=== PATIENT | female | born 1985 | race Caucasian/White ===

== ENCOUNTER 2017-12-19 17:51 | Observation (INO) | payer OTHER ==
[~2017-12-19] VITALS: Ht 162.6 cm; Wt 76.0 kg
--- NOTE | 2017-12-19 17:57 | NUR ---
PT TO ROOM FOR EXAM
--- NOTE | 2017-12-19 18:30 | NUR ---
PT REPORTS LEFT FLANK PAIN X 1 DAY. DENIES ANY PAIN UPON URINATION. PT AWARE OF PLAN OF CARE AND WAIT TIME, WILL CONTINUE TO MONITOR.
[2017-12-19 18:37] LABS: HEMATOCRIT 40.4 % (37.0-47.0); HEMOGLOBIN 13.8 g/dl (12.0-16.0); IMMATURE GRANULOCYTES 0.2 % (0.0-1.0); MEAN CORPUSCULAR HGB 32.1 pG CALC (26.0-32.0); MEAN CORPUSCULAR HGB CONC 34.2 g/L CALC (32.0-36.0); NEUT# 3.47 thou/uL (2.00-7.15); RED BLOOD COUNT 4.3 mill/uL (4.20-5.60); RED CELL DISTRI WIDTH 12.6 % (11.5-15.5)
[2017-12-19 18:41] LABS: URINE BILIRUBIN - DIPSTICK NEGATIVE (NEGATIVE); URINE BLOOD DIPSTICK MODERATE (NEGATIVE); URINE COLOR YELLOW; URINE GLUCOSE - DIPSTICK NEGATIVE (NEGATIVE); URINE KETONE NEGATIVE (NEGATIVE); URINE LEUK ESTERASE NEGATIVE (NEGATIVE); URINE NITRITE - DIPSTICK NEGATIVE (Negative); URINE PROTEIN - DIPSTICK NEGATIVE (NEG-TRACE); URINE SPECIFIC GRAVITY 1.025
[2017-12-19 18:43] LABS: URINE CLARITY CLEAR
--- NOTE | 2017-12-19 18:45 | NUR ---
PT REFUSED PHENERGAN AT THIS TIME AND WILL NOTIFY US IF SHE NEEDS IT.
[2017-12-19 18:52] LABS: URINE SQUAMOUS EPITHELIAL CELL FEW EPI/hpf (0-FEW)
--- NOTE | 2017-12-19 18:54 | NUR ---
REPORT GIVEN TO DAVID VILLA.
--- NOTE | 2017-12-19 18:57 | NUR ---
PT RETURNED FROM CT.
[2017-12-19 18:58] LABS: ALBUMIN 4.5 g/dL (3.2-5.0); ALKALINE PHOSPHATASE 42 u/l (38-126); ANION GAP 18 (6-22 (CALC)); BILIRUBIN, TOTAL 0.4 mg/dL (0.0-1.4); BUN 17 mg/dL (7-17); BUN/CREATININE RATIO 23 (12-20 (CALC)); CARBON DIOXIDE 20 mmol/l (22-30); CHLORIDE 109 mmol/l (95-108); CREATININE 0.7 mg/dL (0.5-1.0); GFR > 60 ML/MIN (>=60 (CALC)); GFR FOR AFR.AMER. > 60 ML/MIN (>=60 (CALC)); LIPASE 93 u/l (23-300); POTASSIUM 4.1 mmol/l (3.5-5.1); SGOT/AST 19 u/l (14-36); SGPT/ALT 24 u/l (9-52); SODIUM 142 mmol/l (137-146)
--- NOTE | 2017-12-19 19:02 | NUR ---
PT RATED PAIN 7/10.
--- NOTE | 2017-12-19 19:05 | NUR ---
PT REQUESTED TYLENOL, ERP INFORMED
--- NOTE | 2017-12-19 19:19 | NUR ---
PROVIDED WARM PACK FOR PT COMFORT
--- NOTE | 2017-12-19 19:45 | NUR ---
DR MILES AT BEDSIDE.
--- NOTE | 2017-12-19 19:52 | NUR ---
DR MILES INFORMED PT OF ADM.
--- NOTE | 2017-12-19 20:07 | NUR ---
PT RELATED PAIN DOWN TO 4-5/10. NO DISTRESS NOTED.
--- NOTE | 2017-12-19 20:09 | NUR ---
REPORT CALLED TO [facility].
--- NOTE | 2017-12-19 20:12 | NUR ---
PT ARRIVED TO UNIT VIA WHEELCHAIR WITH ER STAFF. AMBULATED TO BED; ALERT AND OREINTED. CURRENTLY C/O LEFT FLANK PAIN 01/04. RESPIRATIONS EVEN AND UNLABORED. OREINTED TO ROOM AND CALL LIGHT SYSTEM. PLAN OF CARE DISCUSSED. PT ENCOURAGED TO VERBALIZE CONCERNS. STATES UNDERSTANDING. SAFETY MEASURES IN PLACE. CALL LIGHT WITHIN REACH.
--- NOTE | 2017-12-19 20:15 | NUR ---
PT TO 283 WITH RN VIA W/C.
[2017-12-19 20:22] VITALS: BP 136/83
--- NOTE | 2017-12-19 23:18 | NUR ---
ROCEPHIN INFUSING AT THIS TIME. PT STATES, "I HAVE THE URGE TO PEE, BUT AM ONLY PEEING SMALL AMOUNTS AT A TIME." STRAINING URINE; APPEARS CLEAR YELLOW. PT STATES THAT WAS SEEN AT DR. MORROW OFFICE THIS AM FOR A ROUTINE CHECK UP BECAUSE SHE HASNT BEEN FEELING WELL. THEY DID LAB WORK AT THE OFFICE AND PT STATES THAT SHE DOES NOT WANT THE LAB WORK REPEATED IN THE MORNING. FAMILY UP TO VISIT MOMENTARILY. PT ABLE TO MAKE NEEDS KNOWN. CALL LIGHT WITHIN REACH.
[2017-12-20] VITALS (7 sets, daily range): BP systolic 102–158; BP diastolic 56–89
--- NOTE | 2017-12-20 00:36 | NUR ---
PT RESTING IN BED WITH EYES CLOSED. LORTAB GIVEN FOR MODERATE PAIN TO LEFT FLANK. RESPIRATIONS EVEN AND UNLABORED. IV FLUIDS INFUSING WITHOUT DIFFICUTLY; IV SITE APPEARS HEALTHY. PT IS INDEPDENT IN ROOM; USES CALL LIGHT PRN FOR ASSISTANCE. HAS SOME QUESTIONS ABOUT TOMORROW'S PROCEDURE; INFORMED THAT THE DOCTOR WILL BE IN TO DISCUSS TREATMENT PLAN BEFORE ANY INTERVENTIONS. PT SATISFIED WITH ANSWERS. SAFETY MEASURES IN PLACE. CALL LIGHT WITHIN REACH.
--- NOTE | 2017-12-20 04:35 | NUR ---
PT RESTING IN BED WITH EYES CLOSED; NO SIGNS OF DISTRESS NOTED. AWAKENS SPONTANEOUSLY. RESPIRATIONS EVEN AND UNLABORED ON ROOM AIR. STATES THAT HER PAIN IS MANAGEABLE AT THIS TIME AND DOES NOT NEED ANY PAIN MEDICATION. IF FLUIDS INFUSING WITHOUT DIFFICULTY; IV POSITIONAL BUT APPEARS HEALTHY. SAFETY MEASURES IN PLACE. CALL LIGHT WITHIN REACH.
[2017-12-20 06:29] LABS: HEMATOCRIT 37.8 % (37.0-47.0); HEMOGLOBIN 12.9 g/dl (12.0-16.0); MEAN CELL VOLUME 94.3 fL CALC (80.0-100.0); MEAN CORPUSCULAR HGB 32.2 pG CALC (26.0-32.0); MEAN CORPUSCULAR HGB CONC 34.1 g/L CALC (32.0-36.0); RED BLOOD COUNT 4.01 mill/uL (4.20-5.60); RED CELL DISTRI WIDTH 12.4 % (11.5-15.5)
[2017-12-20 06:51] LABS: ANION GAP 14 (6-22 (CALC)); BUN 16 mg/dL (7-17); BUN/CREATININE RATIO 21 (12-20 (CALC)); CARBON DIOXIDE 21 mmol/l (22-30); CHLORIDE 114 mmol/l (95-108); CREATININE 0.8 mg/dL (0.5-1.0); GFR > 60 ML/MIN (>=60 (CALC)); GFR FOR AFR.AMER. > 60 ML/MIN (>=60 (CALC)); POTASSIUM 4.1 mmol/l (3.5-5.1); SODIUM 145 mmol/l (137-146)
--- NOTE | 2017-12-20 08:00 | NUR ---
ASSESSMENT IS COMPLETED: IV SITE IS FREE FROM REDNESS OR EDEMA. BREATH SOUNDS ARE CLEAR,BILATERALLY, NO C/O SOB, HR IS REG,PULSES ARE STRONG X4. ABD IS SOFT WITH ACTIVE BS. PT HAS PRESSURE ON VAGINAL AREA. CONTINUE TO OSBERVE AND MONITOR.
--- NOTE | 2017-12-20 08:00 | NUR ---
PT ALERT AND ORIENTED X3. INDEPENDENT IN ADLS, FACE SYMMETRICAL, SPEECH CLEAR. PUPILS EQUAL AND REACTIVE TO LIGHT. HEART SOUNDS STRONG AND REGULAR RHYTHM. LUNGS CLEAR, NO SIGNS OF RESP DISTRESS, O2 SAT 98% ON ROOM AIR. ABD SOFT, NON-DISTENDED, NO TENDERNESS. #20 GAUGE IV TO RAC, IV PATENT, FREE FROM REDNESS AND EDEMA, NORMAL SALINE INFUSING AT 100ML/HR WITHOUT DIFFICULTY. RADIAL AND PEDAL PULSES STRONG, BRISK CAP REFILLS, NO EDEMA ON UPPER OR LOWER EXTREMITIES. NO SKIN BREAKDOWN OR REDNESS OBSERVED, SKIN IS WARM AND DRY. 400CC OF CLEAR, YELLOW URINE STRAINED-NO STONES OR RESIDUE PRESENT IN URINE. PT HAS NO COMPLAINTS OF PAIN AT THIS TIME, MAINTAINS NPO STATUS R/T LEFT LASER LITHOTRIPSY AND URETEROSCOPY PROCEDURE SCHEDULED LATER TODAY. SAFETY MEASURES IN PLACE, CALL LIGHT WITHIN REACH.
--- NOTE | 2017-12-20 11:00 | NUR ---
EMPTIED UA AND STRAINED FOR STONES. NONE NOTED.
--- NOTE | 2017-12-20 12:45 | NUR ---
PT HAS BEEN RESTING IN BED WITH NO DISTRESS NOTED. IV SITE IS FREE FROM REDNESS OR EDEMA. CONTINUE TO OSBERVE AND MONITOR.
--- NOTE | 2017-12-20 15:55 | NUR ---
PT BEDING ASSISTED TO THE STRETCHER ACCOMPANIED BY STAFF. IV SITE IS FREE FROM REDNESS OR EDEMA. FAMILY IN THE ROOM. CONTINUE TO OSBERVE AND MONITOR.
--- NOTE | 2017-12-20 16:00 | NUR ---
PT BEING TRANSPORTED TO HAVE SURGERY AT THIS TIME VIA STRETCHER ACCOMPANIED BY STAFF.
--- NOTE | 2017-12-20 18:55 | NUR ---
RETURNED FROM OR VIA STRETCHER ACCOMPANIED BY FREDDIE OR NURSE. PT A/O X3, AMBULATING TO BATHROOM WITH STEADY GAIT, VOIDING PINK TINGED URINE WITH VERY SMALL BLOOD CLOTS, BACK TO BED. C/O LOWER BACK PAIN 06/06, WILL MEDCIATE PER DEC. IV FLUIDS INFUSING TO LH WITH NO COMPLICATIONS. PT STATES SHE WANTS TO GO HOME. DR. BLACKBURN CALLED AND NOTIFIED, NEW ORDERS RECEIVED FOR DC. PRESCRIPTIONS FOR ANTIBIOTIC AND PAIN MEDS PROVIDED TO , HE TOOK TO PHARMACY PRIOR TO PT DC.
--- NOTE | 2017-12-20 20:30 | NUR ---
DISCHARGE INSTRUCTIONS PROVIDED, VOICES UNDERSTANDING DISCHARGED HOME, OFF FLOOR VIA W/C ACCOMPANIED BY FAMILY MEMBERS AND MARYA MCNULTY, ALL BELONGINS TAKEN BY PT.
== END 2017-12-20 20:30 | disposition home or self-care (01) | DRG 669 ==
LOC: ED 17:51 → ED-I 19:20 → ED 19:54 → MS2 19:55
PROVIDERS: Family Medicine; ADMIT Internal Medicine; ATTEND Internal Medicine
PROC: 0TC78ZZ Extirpation of Matter from Left Ureter, Via Natural or Artificial Opening Endoscopic (ICD-10-PCS; principal; 2017-12-20)
PROC: 0T778DZ Dilation of Left Ureter with Intraluminal Device, Via Natural or Artificial Opening Endoscopic (ICD-10-PCS; 2017-12-20)
DX: N13.2 Hydronephrosis with renal and ureteral calculous obstruction (principal); Z87.442 Personal history of urinary calculi
CPT/HCPCS: G0378; Q9967

== ENCOUNTER 2020-09-28 10:54 | Emergency (ER) | payer OTHER ==
[~2020-09-28] VITALS: Ht 162.6 cm; Wt 64.0 kg
[2020-09-28 11:32] LABS: URINE BILIRUBIN - DIPSTICK NEGATIVE (NEGATIVE); URINE BLOOD DIPSTICK SMALL (NEGATIVE); URINE COLOR YELLOW; URINE GLUCOSE - DIPSTICK NEGATIVE (NEGATIVE); URINE KETONE NEGATIVE (NEGATIVE); URINE LEUK ESTERASE NEGATIVE (NEGATIVE); URINE NITRITE - DIPSTICK NEGATIVE (Negative); URINE PH 6.5 (4.5-8.0); URINE PROTEIN - DIPSTICK NEGATIVE (NEG-TRACE); URINE SPECIFIC GRAVITY 1.025; URINE UROBILINOGEN - DIPSTICK 0.2 E.U./dL (0.2)
[2020-09-28 11:40] LABS: URINE BACTERIA FEW hpf; URINE WBC 0-2 WBC/hpf (0-5)
[2020-09-28 11:41] LABS: URINE SQUAMOUS EPITHELIAL CELL MODERATE EPI/hpf (0-FEW)
[2020-09-28 12:57] VITALS: BP 124/72
== END 2020-09-28 12:57 | disposition home or self-care (01) | DRG 866 ==
LOC: ED 10:54
PROVIDERS: Student in an Organized Health Care Education/Training Program
DX: B34.9 Viral infection, unspecified (principal); F17.210 Nicotine dependence, cigarettes, uncomplicated; Z20.828 Contact with and (suspected) exposure to other viral communicable diseases